=== PATIENT | male | born 1990 | race Caucasian/White ===

== ENCOUNTER 2017-01-03 06:34 | Emergency (ER) | payer SELFPAY ==
[~2017-01-03] VITALS: Ht 167.6 cm; Wt 83.8 kg
[2017-01-03 06:36] VITALS: BP 126/60; PULSE 74; RESP 16; TEMP 97.5; O2SAT 98
[2017-01-03] MEDS ORDERED: AMOX500C PO (07:16)
[2017-01-03] MEDS ORDERED: MOME1SPR2 EACH NARE (07:16)
[2017-01-03] MEDS ORDERED: IBUP800T23 PO (07:17)
--- NOTE | 2017-01-03 07:18 | PD ---
HPI Chief Complaint: ENT Complaint Time Seen by Provider: 07:07 Travel History International Travel<30 days: No Contact w/Intl Traveler<30days: No Traveled to known affect area: No History of Present Illness HPI 26-year-old male presents to the emergency department with complaint of nasal congestion, throat irritation, ear pressure 1 week. He points occasional cough. In the past 3 days his nasal congestion has increased and his left nostril is cooperative. He says he can blow phlegm out of his left nostril but he cannot breathe in. Denies fever, chills, nausea, vomiting. Denies chest pain or shortness of breath. Has been using nasal spray with good relief at first, but now is not relieving his clocked left nostril. Has tried other over- the-counter medications with no relief of symptoms. No one else with similar symptoms. No known allergies. Does not have Primary care provider. No other modifying factors or associated signs and symptoms. PFSH Social History Tobacco Use: No Allergies-Medications (Allergen,Severity, Reaction): Coded Allergies: No Known Allergies (Unverified , 01/03/17) Reported Meds & Prescriptions Reported Meds & Active Scripts Active Ibuprofen 800 Mg Tab 800 Mg PO Q6HR PRN Amoxicillin 500 Mg Cap 500 Mg PO BID 10 Days Mometasone Nasal Long Barn 50 Mcg/Act Long Barn 2 Long Barn EACH NARE DAILY PRN Review of Systems Except as stated in HPI: all other systems reviewed are Neg Physical Exam Narrative GENERAL: Well-nourished, well-developed male patient, in no acute distress SKIN: Warm and dry. No rash. HEAD: Atraumatic. Normocephalic. Left Frontal and maxillary sinus tenderness on palpation. EYES: Pupils equal and round at 3 mm with brisk reaction. No scleral icterus. No injection or drainage. PERRLA. ENT: Mucosa pink and moist. Oropharynx without erythema, exudates, tonsillar edema.. No uvular edema. No uvular, palatal, or tonsillar deviation. Airway patent. Left nostril with clear nasal drainage noted; patient able to blow out , but is unable to breathe in through left nostril; left nasal turbinate is edematous and non-erythematous; Nasal turbinates appear normal without nasal blood, purulent drainage or septal hematoma. EARS: Bilateral pinnae and external canals appear within normal limits. Bilateral tympanic membranes without erythema, dullness or perforation. NECK: Trachea midline. No lymphadenopathy. CARDIOVASCULAR: Regular rate and rhythm. No murmur appreciated. RESPIRATORY: No accessory muscle use. Clear to auscultation. Breath sounds equal bilaterally. GASTROINTESTINAL: Abdomen soft, non-tender, nondistended. Hepatic and splenic margins not palpable. Bowel sounds are active 4 quadrants. MUSCULOSKELETAL: No obvious deformities. No clubbing. No cyanosis. No edema. NEUROLOGICAL: Awake and alert. Oriented 3. No obvious cranial nerve deficits. Motor grossly within normal limits. Normal speech. Moves all extremities. 5/5 strength to all extremities. PSYCHIATRIC: Appropriate mood and affect; insight and judgment normal. Data Data Last Documented VS Vital Signs Date Time Temp Pulse Resp B/P Pulse Ox O2 Delivery O2 Flow Rate FiO2 01/03/17 06:36 97.5 74 16 126/60 98 MDM Medical Decision Making Medical Screen Exam Complete: Yes Emergency Medical Condition: Yes Medical Record Reviewed: Yes Differential Diagnosis Upper respiratory infection, sinusitis, viral illness Narrative Course 26-year-old male physical exam consistent with sinusitis. Patient is afebrile and nontoxic appearing. He is in no acute distress. His left nasal turbinate is edematous and not erythematous, and the patient is able to move air out of the left nostril. The right nostril is completely patent. Amoxicillin, mometasone nasal spray, ibuprofen prescribed for home. Patient is medically cleared and stable for discharge. Discussed reasons to return to the emergency department. Instructed patient to follow up with primary care provider. Patient agrees with treatment plan. The patients vital signs are stable and the patient is stable for outpatient follow-up and treatment. Patient discharged home, stable and in no acute distress. Diagnosis Primary Impression: Sinusitis Qualified Code: J01.90 - Acute sinusitis, recurrence not specified, unspecified location Referrals: Primary Care Physician Patient Instructions: General Instructions, Sinusitis (ED) Departure Forms: Tests/Procedures, Work Release Enter return to work date: Jan 05, 2017 Additional Instructions: Ibuprofen or Tylenol as directed and as needed for fever/pain Get plenty of sleep/rest Drink plenty of fluids to prevent dehydration; popsicles and Gatorade Use an air humidifier/turn off ceiling fans Follow-up with primary care provider Return immediately to the emergency department with worsening of symptoms Med/Other Pt SpecificInfo: Prescription(s) given Scripts Ibuprofen 800 Mg [id number] Mg PO Q6HR PRN (PAIN) #30 TAB Ref 0 Prov:Vanita Valera 01/03/17 Amoxicillin 500 Mg [id number] Mg PO BID 10 Days Ref 0 Prov:Vanita Valera 01/03/17 Mometasone Nasal Long Barn 50 Mcg/Act Spray2 Long Barn EACH NARE DAILY PRN (NASAL CONGESTION) #1 BOTTLE Ref 0 Prov:Vanita Valera 01/03/17 Disposition: 01 DISCHARGE HOME Condition: Stable Vanita Valera Jan 03, 2017 07:18
== END 2017-01-03 07:23 | disposition home or self-care (01) ==
LOC: NEPB 06:34
DX: J32.9 Chronic sinusitis, unspecified (principal)
CPT/HCPCS: 99282